=== PATIENT | female | born 1995 | race African-American/Black ===

== ENCOUNTER 2019-11-23 12:02 | Emergency (ER) | payer MEDICAID ==
[~2019-11-23] VITALS: Ht 162.6 cm; Wt 60.0 kg
[2019-11-23] MEDS ORDERED: IBUPROFEN 600MG TABLET PO ONE (13:30)
[2019-11-23] MEDS ORDERED: FLUORESCEIN SODIUM 1MG/STRIP LEFTEYE ONE ×2 (13:30)
[2019-11-23] MEDS ORDERED: TETRACAINE 0.5% OPHTH DROPS 4ML EACHEYE ONE (13:30)
[2019-11-23] MEDS ORDERED: TETRACAINE 0.5% OPHTH DROPS 4ML LEFTEYE ONE (13:30)
[2019-11-23 14:43] VITALS: BP 109/66
[2019-11-23] MEDS ORDERED: MORPHINE SULFATE 4 MG/ML CPJ (NOT FOR IM USE) IV ONE (14:45)
== END 2019-11-23 16:42 | disposition home or self-care (01) ==
LOC: ER 14:34
DX: S05.02XA Injury of conjunctiva and corneal abrasion without foreign body, left eye, initial encounter (principal); J45.909 Unspecified asthma, uncomplicated; X58.XXXA Exposure to other specified factors, initial encounter; Y93.89 Activity, other specified; Y92.89 Other specified places as the place of occurrence of the external cause; Y99.8 Other external cause status
CPT/HCPCS: 96374; 99283

== ENCOUNTER 2020-04-09 11:07 | Emergency (ER) | payer MEDICAID ==
[~2020-04-09] VITALS: Ht 165.1 cm; Wt 62.7 kg
[2020-04-09] MEDS ORDERED: KETOROLAC 30MG/ML VIAL IM ONE (13:30)
[2020-04-09 13:59] VITALS: BP 111/63
== END 2020-04-09 14:00 | disposition home or self-care (01) ==
LOC: ER 11:07
DX: J02.9 Acute pharyngitis, unspecified (principal); J45.909 Unspecified asthma, uncomplicated
CPT/HCPCS: 81025; 96372; 99283; J1885